=== PATIENT | female | born 1955 | race African-American/Black ===

== ENCOUNTER 2020-07-15 14:34 | Emergency (ER) | payer OTHER ==
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
[2020-07-15] MEDS ORDERED: ONDANSETRON 4 MG TAB.RAPDIS PO ONE (17:14)
[2020-07-15] MEDS ORDERED: OXYCODONE-ACETAMINOPHEN 5-325 MG TABLET PO ONE (17:14)
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
[2020-07-15] MEDS ORDERED: HYDROCODONE/ACETAMINOPHEN 5-325 MG (6 TAB/ER DISP) PO PRN (18:10)
[2020-07-15] MEDS ORDERED: CYCLOBENZAPRINE HCL 10 MG TABLET PO ONE (18:10)
[2020-07-15 18:36] VITALS: BP 165/77
--- NOTE | 2020-07-15 19:28 | EKG REPORT ---
SEVERITY:- BORDERLINE ECG - SINUS RHYTHM BORDERLINE R WAVE PROGRESSION, ANTERIOR LEADS : Confirmed by: Marquise Santos MD 15-Jul-2020 19:27:54
== END 2020-07-15 18:38 | disposition home or self-care (01) ==
LOC: ER 14:34
DX: S00.83XA Contusion of other part of head, initial encounter (principal); S00.11XA Contusion of right eyelid and periocular area, initial encounter; S00.03XA Contusion of scalp, initial encounter; S16.1XXA Strain of muscle, fascia and tendon at neck level, initial encounter; R51.9 Headache, unspecified; R07.89 Other chest pain; V43.52XA Car driver injured in collision with other type car in traffic accident, initial encounter; M50.322 Other cervical disc degeneration at C5-C6 level; M47.812 Spondylosis without myelopathy or radiculopathy, cervical region; I10 Essential (primary) hypertension
CPT/HCPCS: 93005; 99285; 71045; 70450; 72125; 93010; S0119